=== PATIENT | male | born 2000 | race Caucasian/White ===

== ENCOUNTER 2022-12-06 08:55 | Emergency (ER) | payer MEDICAID, SELFPAY ==
--- NOTE | ~2022-12-06 | XR_ITS ---
EXAMINATION: XR ANKLE, RIGHT CLINICAL INFORMATION: Injury. COMPARISON: None available. TECHNIQUE: AP, lateral, and mortise views of the right ankle. FINDINGS: There is moderate lateral malleolar soft tissue swelling. No visible acute fracture, dislocation or subluxation seen. The ankle mortise and subtalar joints are normal. XR/XR ankle RT min 3V IMPRESSION: Moderate lateral malleolar soft tissue swelling. No visible acute fracture or dislocation seen.
[2022-12-06 09:28] VITALS: BP 153/69; PULSE 61; RESP 18; TEMP 36.7; O2SAT 98; BMI 34.8
--- NOTE | 2022-12-06 10:14 | ED_ITS ---
HPI - Extremity Injury (Lower) General Chief Complaint: Extremity Injury, Lower Stated Complaint: R ankle inj Time Seen by Provider: 12/06/22 09:08 History of Present Illness HPI Narrative: Patient complains of pain and swelling to the right ankle after twisting it playing basketball yesterday, no other injury no other complaint no numbness no weakness no tingling no neck pain no back pain Related Data Previous Rx's Medication Instructions Recorded ibuprofen 600 mg tablet 600 mg PO Q6H PRN pain #20 tabs 12/06/22 Allergies Allergy/AdvReac Type Severity Reaction Status Date / Time No Known Allergies Allergy Verified 12/06/22 09:10 [facility] Past Medical History Source: nursing notes reviewed Social History Social History Advance Directives: No Advance Directives Information Provided: Yes Physical Exam Vital Signs: Vital Signs: Last Vital Signs Temp 98.0 F 12/06/22 09:28 Pulse 61 12/06/22 09:28 Resp 18 12/06/22 09:28 BP 153/69 H 12/06/22 09:28 Pulse Ox 98 12/06/22 09:28 O2 Del Method Room Air 12/06/22 09:28 BMI result Body Mass Index 34.8 General appearance is no acute distress Head is normocephalic atraumatic Neck is supple Respiratory no distress The back full range of motion Extremities full range of motion x4 The right ankle had tenderness ecchymosis and swelling around the lateral malleolus, there was no other tenderness in the foot, no tenderness in the knee which had full range of motion, ankle had full range of motion, skin was intact Neuro no motor or sensory deficits Course Course Course Narrative: Right ankle x-ray was negative for fracture Patient was sprained ankle is given Aircast and crutches and discharged Discharge Plan Discharge Clinical Impression: Right ankle sprain Patient Disposition: Home, Self-Care Additional Instructions: X-ray of right ankle was negative Sprained ankle should improve significantly within a week, if still using crutches and significant discomfort follow with orthopedist or primary doctor for further evaluation Return any time any worse condition or any concerns You can use Motrin as needed, apply ice, elevate leg Prescriptions: New ibuprofen 600 mg tablet 600 mg PO Q6H PRN (Reason: pain) Qty: 20 0RF Referrals: Severo Velasco MD [Physician] - (Right ankle injury)
== END 2022-12-06 10:28 | disposition home or self-care (01) ==
PROVIDERS: Emergency Provider Emergency Medicine
DX: S93.401A Sprain of unspecified ligament of right ankle, initial encounter (principal); X50.1XXA Overexertion from prolonged static or awkward postures, initial encounter; Y93.9 Activity, unspecified; Y92.310 Basketball court as the place of occurrence of the external cause; Y99.9 Unspecified external cause status
CPT/HCPCS: 73610; 99282; 99283

== ENCOUNTER 2023-04-15 20:59 | Emergency (ER) | payer MEDICAID, SELFPAY ==
--- NOTE | ~2023-04-15 | XR_ITS ---
EXAMINATION: XR ANKLE, LEFT CLINICAL INFORMATION: Injury. COMPARISON: None available. TECHNIQUE: AP, lateral, and mortise views of the left ankle. FINDINGS: Marked soft tissue swelling is present overlying the distal part of the fibula extending to the ankle, consistent with soft tissue injury. Soft tissue swelling is also noted along the posterior and anterior aspect of the left ankle. The bony alignments are intact. The cortices are intact. Articular margins, joint space appear unremarkable. XR/XR ankle LT min 3V IMPRESSION: Marked soft tissue swelling overlying the distal part of the fibula and around the left ankle, most consistent with soft tissue injury. No radiographic evidence of underlying articular or acute osseous abnormalities.
[2023-04-15 21:16] VITALS: BP 133/66; PULSE 71; RESP 18; TEMP 36.9; O2SAT 96; BMI 31.2
--- NOTE | 2023-04-15 22:33 | ED.LOWEXIN ---
HPI - Extremity Injury (Lower) General Chief Complaint: Extremity Injury, Lower Stated Complaint: left david inj Time Seen by Provider: 04/15/23 22:32 Source: patient Mode of arrival: ambulatory Limitations: no limitations History of Present Illness HPI Narrative: Patient was playing basketball jumped in a wrong way landed on his left ankle sprain his left ankle with left ankle swelling and pain on ambulation no other injury Related Data Previous Rx's Medication Instructions Recorded ibuprofen 600 mg tablet 600 mg PO Q6H PRN pain #20 tabs 12/06/22 ibuprofen 600 mg tablet 600 mg PO Q6H PRN fever or pain 04/15/23 #30 tabs Allergies Allergy/AdvReac Type Severity Reaction Status Date / Time No Known Allergies Allergy Verified 12/06/22 09:10 Review of Systems Review of Systems: Yes all other systems are reviewed and are negative [facility] Social History Social History Advance Directives: No Advance Directives Information Provided: No Physical Exam Vital Signs: Vital Signs: Last Vital Signs Temp 98.4 F 04/15/23 21:16 Pulse 71 04/15/23 21:16 Resp 18 04/15/23 21:16 BP 133/66 04/15/23 21:16 Pulse Ox 96 04/15/23 21:16 O2 Del Method Room Air 04/15/23 21:16 BMI result Body Mass Index 31.2 Extrem: Ankle/foot/toe images: 1. Soft tissue swelling left ankle good range of movement neurovascular intact no deformity Medical Decision Making Medical Decision Making MDM Narrative: Patient with left ankle sprain x-ray negative for fracture given air cast and crutches Discharge Plan Discharge Clinical Impression: Ankle sprain and strain Patient Disposition: Home, Self-Care Instructions: Ankle Sprain (ED) Additional Instructions: wear ankle Aircast for support Ibuprofen for pain Avoid sports for next 6 weeks till heels complete Prescriptions: New ibuprofen 600 mg tablet 600 mg PO Q6H PRN (Reason: fever or pain) Qty: 30 0RF No Action ibuprofen 600 mg tablet 600 mg PO Q6H PRN (Reason: pain) Qty: 20 0RF Stand Alone Forms: Work/School Release
== END 2023-04-15 23:08 | disposition home or self-care (01) ==
PROVIDERS: Emergency Provider Internal Medicine
DX: S93.402A Sprain of unspecified ligament of left ankle, initial encounter (principal); S96.912A Strain of unspecified muscle and tendon at ankle and foot level, left foot, initial encounter; X50.1XXA Overexertion from prolonged static or awkward postures, initial encounter; Y93.67 Activity, basketball; Y92.310 Basketball court as the place of occurrence of the external cause; Y99.9 Unspecified external cause status
CPT/HCPCS: 73610; 99283

== ENCOUNTER 2023-08-05 18:26 | Emergency (ER) | payer MEDICAID, SELFPAY ==
--- NOTE | ~2023-08-05 | XR_ITS ---
EXAMINATION: XR HAND, LEFT CLINICAL INFORMATION: Fall. Injury. Swelling. COMPARISON: None available. TECHNIQUE: PA, lateral, and oblique views of the left hand. FINDINGS: Moderately displaced oblique fracture through the shaft of the third metacarpal. Fracture extends from the proximal shaft of the metadiaphysis to the distal shaft. No dislocation. XR/XR hand LT 2V IMPRESSION: Moderately displaced oblique fracture through the shaft of the third metacarpal.
[2023-08-05 18:58] VITALS: BP 161/73; PULSE 69; RESP 14; TEMP 36.8; O2SAT 97; BMI 32.9
[2023-08-05] MEDS: Ketorolac Tromethamine 15 MG/ML VIAL 30 MG IM (21:55)
--- NOTE | 2023-08-05 22:06 | ED.EXTPRO ---
HPI - Extremity Problem General Chief complaint: Extremity Injury, Upper Stated complaint: possible broken finger Time Seen by Provider: 08/05/23 20:51 Source: patient Mode of arrival: ambulatory Limitations: no limitations History of Present Illness HPI Narrative: This is a 23-year-old male presenting to the emergency department with left hand pain for the past few hours, patient reports he was playing basketball, fell, hit his left hand on the wood court, since then has been having pain and swelling. However now he says pains under control, able to move all fingers, no numbness or tingling. No head strike. No injuries to neck, chest, abdomen, pelvis or head. Not on blood thinners Related Data Previous Rx's Medication Instructions Recorded ibuprofen 600 mg tablet 600 mg PO Q6H PRN pain #20 tabs 12/06/22 ibuprofen 600 mg tablet 600 mg PO Q6H PRN fever or pain 04/15/23 #30 tabs ketorolac 10 mg tablet 10 mg PO TID PRN pain 5 days #15 08/05/23 tabs Allergies Allergy/AdvReac Type Severity Reaction Status Date / Time No Known Allergies Allergy Verified 12/06/22 09:10 Review of Systems Review of Systems: Constitutional : No Weight loss, No Fever, No Chills, No Fatigue, No Malaise ENT/Mouth : No sore throat, No Rhinorrhea Eyes: No Eye Pain, No Swelling, No Redness Cardiovascular : No Chest Pain, No SOB, No Dyspnea on Exertion, No Orthopnea, No Edema, No Palpitations Respiratory : No Cough, No Sputum, No Wheezing Gastrointestinal : No Nausea, No Vomiting, No Diarrhea, No Constipation, No abdominal Pain, No Hematochezia, No Melena Genitourinary : No Dysuria, No Urinary Frequency, No Hematuria, Musculoskeletal : + joint pain, No Myalgias, + Joint Swelling Skin : No Skin Lesions, No rash Neuro : No Weakness, No Numbness, No Dizziness, No Headache Psych : No Anxiety/Panic, No Depression All other systems reviewed and are negative Yes all other systems are reviewed and are negative [facility] Past Medical History Attestation statement: The following information was validated with the patient. Source: old records reviewed and nursing notes reviewed Social History Social History Advance Directives: No Advance Directives Information Provided: No Physical Exam Vital Signs: Vital Signs: Last Vital Signs Temp 98.2 F 08/05/23 18:58 Pulse 69 08/05/23 18:58 Resp 14 08/05/23 18:58 BP 161/73 H 08/05/23 18:58 Pulse Ox 97 08/05/23 18:58 O2 Del Method Room Air 08/05/23 18:58 BMI result Body Mass Index 32.9 vss Appearance: Alert.? Oriented X3.? No acute distress.? Head: Normocephalic, atraumatic, no step-offs or deformities Eyes: Pupils equal, round and reactive to light.? ENT: Pharynx normal.? Neck: Normal inspection.? Neck supple.? CVS: Normal heart rate and rhythm.? Pulses normal.? Respiratory: No respiratory distress.? Breath sounds normal.? Abdomen: Soft and nontender.? Skin: Skin warm and dry.? Normal skin color.? Normal skin turgor.? Extremities: No lower extremity edema.? No calf ttp. 5/5 strength to bilateral upper and lower extremities + swelling noted to the dorsal aspect of left hand with hematoma and mild discomfort with palpation with evident deformity patient able to move all fingers bilaterally, normal sensation distally capillary refill less than 2 seconds 2+ radial pulses equal bilateral. Normal right hand. Back: No midline tenderness, no C-spine tenderness, full range of motion, no CVA tenderness bilaterally Neuro: Oriented X 3.? No motor deficit.? No sensory deficit. CN 2-12 intact . Ambulating with steady gait normal coordination. Normal [id number]. Course Reevaluation(s) Reevaluation #1: X-ray showing moderately displaced oblique fracture through the shaft of the 3rd metacarpal. I did place an ulnar gutter with my attending Dr. Degroot. Neurovascular status intact after placing splint. I did let ortho know about this case patient to follow-up in the office. Will send him with Toradol. Educated patient on diagnosis and treatment plan, answered all question, patient verbalizes understanding. At this time patient will be discharged home, advised to return with new or worsening symptoms. Educated on worrisome signs and symptoms and when to return. At this time I feel comfortable discharge home. Time: 22:10 Medications Administered Discontinued Medications Generic Name Dose Route Start Last Admin Trade Name Freq PRN Reason Stop Dose Admin Ketorolac Tromethamine 30 mg 08/05/23 21:18 08/05/23 21:55 Ketorolac Tromethamine 15 Mg/Ml Vial IM 08/05/23 21:19 30 mg ONCE ONE Administration Medical Decision Making Medical Decision Making [facility] Narrative: 23-year-old male presents with left hand pain status post fall while playing basketball PE w/ No lower extremity edema.? No calf ttp. 5/5 strength to bilateral upper and lower extremities + swelling noted to the dorsal aspect of left hand with hematoma and mild discomfort with palpation with evident deformity patient able to move all fingers bilaterally, normal sensation distally capillary refill less than 2 seconds 2+ radial pulses equal bilateral. Normal right hand. Concern for pressure fracture, dislocation. No signs of neurovascular compromise, threat to [place]. No signs of traumatic injury to head, neck, chest, abdomen or pelvis Plan imaging Differential Diagnosis Differential Diagnoses: The differential diagnosis associated with the presentation includes Concern for pressure fracture, dislocation. No signs of neurovascular compromise, threat to [place]. No signs of traumatic injury to head, neck, chest, abdomen or pelvis Admission/Observation Consideration of admission/observation: Escalation of care including admission/observation considered Unlikely Consult Healthcare Provider Management of the patient was discussed with: Hand Profiler (Ortho) Lab Data [facility] Lab Attestation statement: I reviewed the patient's lab results. Independent Interpretation I performed an independent interpretation of an: Plain X-Ray (XR/XR hand LT 2V IMPRESSION: Moderately displaced oblique fracture through the shaft of the third metacarpal. ) Radiology Impression Discussion of test interpretation with radiology: I have reviewed the radiologist's reading. Prescription Management I considered prescription management with: Pain Medication Critical Care Time Critical Care Time Critical Care Time: Yes Total Critical Care Time: 35 Attestation: I attest to this time spent taking care of the patient, obtaining history, physical, reviewing labs, imaging, speaking to my attending, speaking to specialist. Discharge Plan Discharge Clinical Impression: Fracture of hand Patient Disposition: Home, Self-Care Instructions: Hand Fracture (ED) Additional Instructions: Take your medications as prescribed. If you were prescribed antibiotics today, it is important that you take your medication to their entirety, do not skip any doses, do not finish them early. Follow-up with your primary care provider this week. Return to the emergency department with new or worsening symptoms. Such as fevers, chills, chest pain, shortness of breath, nausea, vomiting, dizziness, headache, vision changes, lethargy In case of emergency call 911 Toradol has been sent to your pharmacy, you tolerated this well in the department. Please take this as prescribed do not take this with ibuprofen, or other NSAIDs, do not mix this with alcohol. Side effects of this medication including increased risk for bleeding and possible kidney injury. Follow-up with the orthopedic doctor Return if you experience numbness, tingling, skin discoloration, inability to feel your left hand, inability to move fingers. Keep your splint clean and dry. FINDINGS: Moderately displaced oblique fracture through the shaft of the third metacarpal. Fracture extends from the proximal shaft of the metadiaphysis to the distal shaft. No dislocation. XR/XR hand LT 2V IMPRESSION: Moderately displaced oblique fracture through the shaft of the third metacarpal. Prescriptions: New ketorolac 10 mg tablet 10 mg PO TID PRN (Reason: pain) 5 Days Qty: 15 0RF No Action ibuprofen 600 mg tablet 600 mg PO Q6H PRN (Reason: pain) Qty: 20 0RF ibuprofen 600 mg tablet 600 mg PO Q6H PRN (Reason: fever or pain) Qty: 30 0RF Referrals: [facility] [place] Orthopedic Surgeons [Provider Group] - 3 days Physician,Unknown J [Primary Care Provider] - 2 days Stand Alone Forms: Work/School Release
== END 2023-08-05 22:11 | disposition home or self-care (01) ==
PROVIDERS: Emergency Provider Internal Medicine
DX: S62.323A Displaced fracture of shaft of third metacarpal bone, left hand, initial encounter for closed fracture (principal); W18.39XA Other fall on same level, initial encounter; Y93.67 Activity, basketball; Y92.9 Unspecified place or not applicable; Y99.9 Unspecified external cause status; M79.642 Pain in left hand
CPT/HCPCS: 73120; 96372; 99283; 99284; J1885

== ENCOUNTER 2023-08-07 13:29 | Outpatient (AMB) | payer MEDICAID, SELFPAY ==
[2023-08-07 13:37] VITALS: BMI 32.8
--- NOTE | 2023-08-07 13:37 | A.OFFVIS_ITS ---
Intake Vital Signs 08/07/23 13:37 Height 6 ft Weight 242 lb BMI 32.8 Intake Visit Reasons: FC- ED f/u left hand fx Intake Note: Bennett trevino 23 year old right hand dominant male presents today for an ER follow up of left hand fx, DOI 08/05/23. Patient reports he was playing basketball, when he fell injuring his left hand on the wood court. He presented to [facility] ED same day where xrays were taken and placed in a splint. Currently he denies pain however he complains of numbness and tingling in his hand. Allergies No Known Allergies Allergy (Verified 08/07/23 13:46) Medication List - Last Reconciled 08/07/23 by Cristofer Rojas PA-C No Known Home Meds HPI FC- ED f/u left hand fx HPI Details 23-year-old right hand dominant male who presents to the office today for an ER follow-up of left-hand injury s/p playing basketball when he fell and injured his left hand on the wooden court, 08/05/23. He was seen at ED the same day where x-rays were performed and he was placed in a splint. He currently states he has no pain but he does c/o numbness and tingling in his hand. [facility] Social History (Updated 08/07/23 @ 13:41 by JUAN JOSE Crane) Patient Tobacco Use Status: Never used Tobacco Current occupational status: student Current occupation: trade school, right hand dominant Review of Systems Const All systems reviewed & are unremarkable except as noted in HPI and below Physical Exam Vital Signs: BMI result Body Mass Index 32.8 Const General: cooperative and no acute distress Orientation/consciousness: patient oriented x3 HEENT Head: Yes normal to inspection, Yes normocephalic and Yes atraumatic Eyes General: appearance normal, both eyes and all related structures Neck Neck: Yes normal visual inspection and Yes no lymphadenopathy Resp Effort & Inspection: normal respiratory effort and able to speak in complete sentences Cardio Rate: regular rate Peripheral pulses: Peripheral pulses 2+ throughout GI Inspection: Yes normal to inspection Palpation (GI): Soft to palpation Skin General skin exam: no rashes or lesions noted Neuro General: patient oriented x3 Extrem Other: Left hand: Normal to inspection. He does have significant swelling along the dorsum of the hand with tenderness to palpation along the 3rd metacarpal shaft. He can make a full fist and fully extend all digits. NVI. Psych Appearance: grossly normal Mental Status: mental status grossly normal Office Procedures Casting/Splints 29592-Vuzkydi Splint Application Procedure code (CPT) selection complete Fracture Care Fracture Billing Code: Fracture Billing Code Results Reviewed Results Reviewed: XR hand LT 2V 08/05/23 IMPRESSION: Moderately displaced oblique fracture through the shaft of the third metacarpal. Assessment & Plan Assessment & Plan (1) Fracture of hand: Code(s): S62.90XA - Unspecified fracture of unspecified wrist and hand, initial encounter for closed fracture Qualifiers: Encounter type: initial encounter Fracture type: closed Laterality: left Qualified Code(s): S62.92XA - Unspecified fracture of left wrist and hand, initial encounter for closed fracture Plan I discussed the case with Dr. Velasco. I discussed the extent of the injury to the patient and options available. Given the extent of the fracture pattern and high risk of further displacement, it is recommended that we surgically fix this to help with stability and restoring anatomy. I explained to the patient the procedure in detail along with the risks, benefits and alternatives. Risks including but not limited to infection, wound breakdown, stiffness, ongoing pain, nonunion or malunion, and possible complications with hardware. He does understand all this and would like to proceed with closed versus open reduction internal fixation of the left hand with Dr. Velasco. He will be booked accordingly. post op plan : 3wks immob followed by pinn removal based on bony healing ROM Patient Instructions: Scribed for Cristofer Rojas PA-C, by Dru Baez medical staff assistant, on 08/07/2023 at 2:30 PM YESY. Cristofer Reyna PA-C, have personally reviewed and agree with the information entered by the scribe. Coding Level of Care Code New Pt Level 4 (60945) Diagnoses Closed fracture of left hand, initial encounter S62.92XA Encounter type: initial encounter Fracture type: closed Laterality: left CPT Codes Splint - CPT: 81740-Cdgassb Splint Application ([id number]) Fracture Care - Fracture Billing Code: Fracture Billing Code ([id number])
== END 2023-08-07 14:43 | disposition home or self-care (01) ==
LOC: HO.HOS 13:29
PROVIDERS: Visit Provider Physician Assistant
DX: S62.323B Displaced fracture of shaft of third metacarpal bone, left hand, initial encounter for open fracture (principal); S62.92XA Unspecified fracture of left hand, initial encounter for closed fracture; W19.XXXA Unspecified fall, initial encounter; Y93.67 Activity, basketball
CPT/HCPCS: 26600; 99204

== ENCOUNTER → 2023-08-07 13:29 | Outpatient (BNVA) | payer MEDICAID, SELFPAY | PROVIDERS: Visit Provider Physician Assistant | DX: S62.92XA Unspecified fracture of left hand, initial encounter for closed fracture (principal) | CPT/HCPCS: 26600; 99212 ==

== ENCOUNTER 2023-08-09 11:15 | Day surgery (SDC) | payer MEDICAID, SELFPAY ==
--- NOTE | 2023-08-08 12:02 | P.CONAN_ITS ---
Documented by User: Stephanie Izquierdo NP 08/08/23 12:02 HPI - Anesthesia Eval Consult details Narrative: 23yo M for Left Middle Finger Fx ORIF vs CRPP [facility] Social History Social History (Updated 08/07/23 @ 13:41 by JUAN JOSE Crane) Patient Tobacco Use Status: Never used Tobacco Advance Directives: No Advance Directives Information Provided: Yes Current occupational status: student Current occupation: trade school, right hand dominant Meds Allergies Allergy/AdvReac Type Severity Reaction Status Date / Time No Known Allergies Allergy Verified 08/07/23 13:46 Assessment and Plan Assessment Anesthesia Assessment: Chart Reviewed Documented by User: Charles Vyas MD 08/09/23 11:43 [facility] Family History Family history of problems with anesthesia: No Surgical History History of Problems with Anesthesia: No (h) Social History Social History (Updated 08/07/23 @ 13:41 by JUAN JOSE Crane) Patient Tobacco Use Status: Never used Tobacco Advance Directives: No Advance Directives Information Provided: Yes Current occupational status: student Current occupation: [employer], right hand dominant Meds Allergies Allergy/AdvReac Type Severity Reaction Status Date / Time No Known Allergies Allergy Verified 08/07/23 13:46 Exam Airway Mallampati Class: II TM Dist: >3cm Neck ROM: Limited Heart: rrr Lungs: cta Assessment and Plan Assessment Anesthesia Assessment: Anesthesia Plan Discussed Final Anesthetic Review Family History of Problems with Anesthesia: No History of Problems with Anesthesia: No (h) ASA Class: II Final Preanesthetic Review: No Changes in Pt Med Stat, Meds/Allgs Chart Reviewed, Consent Obtained/Reviewed and Anes Risks/Benef Reviewed Patient Risk: Low Procedure Risk: Intermediate Anesthetic Plan Anesthetic Plan: GA, Regional Block and Agree w/ Assess. and Plan Disposition: Standard PACU
--- NOTE | ~2023-08-09 | FL_ITS ---
EXAMINATION: XR FLUOROSCOPY WITH IMAGES CLINICAL INFORMATION: Fracture left middle finger. COMPARISON: Left hand x-ray 08/05/2023 TECHNIQUE: Fluoroscopy Supervised By: Dr. Severo Velasco. Fluoroscopy Time: 73.76 seconds. Cumulative Dose: 2.4016 mGy. DAP: 0.1451 Gycm2. Images: 2. FINDINGS: Images demonstrate 4 screws transfixing the fracture of the third metacarpal shaft. There is improved alignment. FL/FL guidance in OR IMPRESSION: ORIF of left third metacarpal fracture.
[2023-08-09 11:50] VITALS: BMI 31.2
[2023-08-09 11:51] VITALS: BP 144/63; PULSE 64; RESP 18; TEMP 37.2; O2SAT 96
[2023-08-09] MEDS: Lactated Ringers 1,000 ML 100 ML IVCONT (11:57)
--- NOTE | 2023-08-09 12:05 | MHC.SHP ---
Pre-Procedural Eval Section A Date of Service: 08/09/23 The patient is an INPATIENT: No Changes since office visit: No Cold of Flu in the past 2 weeks, No New Medical Problems, No Changes in Medication and No Patient answered all questions The History & Physical has been completed within 30 days and I have reviewed it.: Yes Section B Chief Complaint: Displaced fracture of proximal phalanx of left mid Allergies: Allergies Allergy/AdvReac Type Severity Reaction Status Date / Time No Known Allergies Allergy Verified 08/07/23 13:46 Plan I have reviewed the history and physical and performed a pertinent physical examination on my patient. No changes have occurred unless specified. Time Spent With Patient Time: Total time managing care of this patient today ____ minutes.
--- NOTE | 2023-08-09 13:44 | PM.OP ---
Brief Operative Note Date of Service: 08/09/23 Pre-op diagnosis: Left long finger metacarpal fracture Post-op diagnosis: same Procedure: ORIF L LF metacarpal Implants: Adry 2.3 mm bone screws x 4 Surgeon: Severo Velasco MD Anesthesia: GETA Was an Mechanical Unit Repairer used for this Procedure?: Yes Mechanical Unit Repairer: Jennifer Coronel Estimated blood loss (mL): 5 Tourniquet time (min): 40 IV fluids (mL): 800 Pathology: none sent Condition: stable Disposition: PACU
[2023-08-09 13:50] VITALS: BP 136/65; PULSE 76; RESP 16; TEMP 36.2; O2SAT 97
[2023-08-09 13:55] VITALS: BP 138/58; PULSE 90; RESP 16; O2SAT 99
[2023-08-09 14:00] VITALS: BP 135/55; PULSE 76; RESP 16; O2SAT 96
[2023-08-09 14:05] VITALS: BP 133/52; PULSE 77; RESP 16; O2SAT 96
[2023-08-09 14:20] VITALS: BP 132/58; PULSE 73; RESP 19; TEMP 36.7; O2SAT 97
--- NOTE | 2023-08-12 08:22 | W.PM.OPN ---
Operative Note Operative Note Date of Service: 08/09/23 Narrative: Date of Service: 08/09/23 Pre-op diagnosis: Left long finger metacarpal fracture Post-op diagnosis: same Procedure: ORIF L LF metacarpal Implants: Adry 2.3 mm bone screws x 4 Surgeon: Severo Velasco MD Anesthesia: GETA Was an Licensed Nurse Practitioner used for this Procedure?: Yes Licensed Nurse Practitioner: Jennifer Coronel Estimated blood loss (mL): 5 Tourniquet time (min): 40 IV fluids (mL): 800 Pathology: none sent Condition: stable Disposition: PACU Patient was brought to the operating room and placed supine on the surgical table. He was prepped and draped in standard sterile fashion and a time out was called to indentify proper site, proper procedure and IV antibiotics per weight were administered. I began by making a longitudinal incision over the dorsum of the left LF metacarpal. Full thickness flaps were developed and the long oblique metacarpal fracture was identified. I used a towel clip to reduce the fracture once i debrided clot and fibrous tissue. I then placed 4 2.3 mm screws from dorsal to volar across the fracture using standard AO lag screw technique. Biplanar flouro was used to confirm screw length and fracture reduction. I was satisfied with the reduction. I then irrigated copiously and closed with running absorbable suture and skin glue. Sterile dressings were applied. Patient was placed into a well-padded volar splint. He was extubated and brought to the recovery room in stable condition. There were no known complications.
== END 2023-08-09 15:59 | disposition home or self-care (01) ==
LOC: HO.SSS 11:16
PROVIDERS: Visit Provider Orthopaedic Surgery
PROC: (CPT 26615; principal; 2023-08-09 13:50)
DX: S62.323A Displaced fracture of shaft of third metacarpal bone, left hand, initial encounter for closed fracture (principal); R20.0 Anesthesia of skin; R20.1 Hypoesthesia of skin; W01.0XXA Fall on same level from slipping, tripping and stumbling without subsequent striking against object, initial encounter; Y93.67 Activity, basketball; Y92.89 Other specified places as the place of occurrence of the external cause; Y99.9 Unspecified external cause status
CPT/HCPCS: 26615; C1713; J0690; J1100; J2405; J2704; J2795

== ENCOUNTER → 2023-08-09 11:15 | Outpatient (BNV) | payer MEDICAID, SELFPAY | PROVIDERS: Visit Provider Orthopaedic Surgery | DX: S62.323A Displaced fracture of shaft of third metacarpal bone, left hand, initial encounter for closed fracture (principal) | CPT/HCPCS: 26615 ==

== ENCOUNTER 2023-08-31 10:44 | Outpatient (REF) | payer MEDICAID, SELFPAY | END 2023-08-31 10:45 | disposition home or self-care (01) | LOC: HO.HOSX 10:44 | PROVIDERS: Visit Provider Physician Assistant | DX: Z13.89 Encounter for screening for other disorder (principal) ==

== ENCOUNTER 2023-09-05 08:20 | Outpatient (AMB) | payer MEDICAID, SELFPAY ==
--- NOTE | 2023-09-05 08:31 | MHC.OFFVIS ---
Intake Intake Visit Reasons: PO-Lt MF CRPP vs ORIF 08/09/23 NE Intake Note: Bennett is a 23 year old right hand dominant male who presents today for a post op appointment s/p left MF CRPP vs ORIF 08/16/23 NE. Patient reports he is doing well no pain or discomfort, however he does feel his hand a bit heavy. Allergies No Known Allergies Allergy (Verified 08/07/23 13:46) HPI PO-Lt MF CRPP vs ORIF 08/09/23 NE HPI Details 23-year-old right hand dominant male who presents in the office today 3 weeks and 6 days status post left little finger metacarpal ORIF, which was performed on 08/09/[address] Velasco. The patient reports he is doing well no pain or discomfort. However, he states he feels his hand is a bit heavy. [facility] Social History Patient Tobacco Use Status: Never used Tobacco Current occupational status: student Current occupation: trade school, right hand dominant Review of Systems Const All systems reviewed & are unremarkable except as noted in HPI and below Physical Exam Const General: cooperative, healthy appearing and no acute distress Resp Effort & Inspection: normal respiratory effort and able to speak in complete sentences Cardio Rate: regular rate Peripheral pulses: Peripheral pulses 2+ throughout GI Palpation (GI): Soft to palpation Skin Lesions: no lesions Rashes: no rashes Extrem Other: Left hand: Dorsal side incision site over the 3rd metacarpal is clean, dry, and intact. Steri-stripes intact. No surrounding erythema or drainage. No signs of infection. Lacking about 3 cm from making a closed fist. Sensation intact. Capillary refill intact. Office Procedures Casting/Splints 13190-Bwzi/Wrist Cast Application Procedure code (CPT) selection complete Assessment & Plan Assessment & Plan (1) Fracture of hand: Comment: Left little finger metacarpal ORIF 08/08/2023 Dr. Severo Velasco Code(s): S62.90XA - Unspecified fracture of unspecified wrist and hand, initial encounter for closed fracture Qualifiers: Encounter type: initial encounter Fracture type: closed Laterality: left Qualified Code(s): S62.92XA - Unspecified fracture of left wrist and hand, initial encounter for closed fracture Plan Mr. Whitney is a 23-year-old right hand dominant male who presents in the office today 3 weeks and 6 days status post left little finger metacarpal ORIF, which was performed on 08/09/[address] Velasco. The patient reports he is doing well no pain or discomfort. However, he states he feels his hand is a bit heavy. Dr. Diallo was available to speak with me while in the office today and a collaborative treatment plan was made. The patient will be placed in a finger spica custom made cast with fingers including the middle, ring and little fingers. He might be able to come out of the cast in 2 weeks but will need to continue isamar taping for 4 additional weeks. I would like for him to work on gentle ROM of the index and thumb fingers. 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 Follow up will be in 2 weeks with repeat x-rays out of the cast with anticipated transition to isamar taping, or sooner if needed. X-rays of the left hand which were obtained while in the office today and were reviewed by me, Jennifer Coronel PA-C, revealed orthopedic hardware intact with routine healing. Orders: Orders XR hand LT min 3V Today M79.643 - Pain in unspecified hand Patient Instructions: Scribed for Jennifer Coronel PA-C by Cierra Vuong nuclear medical tech, on 09/05/2023 at 8:21 am, EST. Coding Level of Care Code Global (03277) Diagnoses Closed fracture of left hand, initial encounter S62.92XA Encounter type: initial encounter Fracture type: closed Laterality: left CPT Codes Casting - CPT: 84926-Xxdp/Wrist Cast Application ([id number])
== END 2023-09-05 09:59 | disposition home or self-care (01) ==
PROVIDERS: Visit Provider Physician Assistant
DX: S62.92XA Unspecified fracture of left hand, initial encounter for closed fracture (principal)
CPT/HCPCS: 29085; 99024

== ENCOUNTER 2023-09-05 11:13 | Outpatient (REF) | payer MEDICAID, SELFPAY ==
--- NOTE | ~2023-09-05 | XR_ITS ---
EXAMINATION: XR HAND, LEFT CLINICAL INFORMATION: Pain. COMPARISON: Prior examinations, most recently 08/09/2023. TECHNIQUE: PA, lateral, and oblique views of the left hand. FINDINGS: Bony alignment and mineralization are normal. There is a neutral ulnar variance. There is stable very mild displacement of an oblique fracture of the left third metacarpal shaft, with intact orthopedic fixator screws. No hardware failure or loosening is seen. There is no significant new callus formation. No dislocation is seen. There is no abnormal bony erosive change. The proximal and distal carpal rows are intact. No focal soft tissue swelling, gas or foreign body is seen. XR/XR hand LT min 3V IMPRESSION: There is stable very mild displacement status-post ORIF of an oblique fracture of the left third metacarpal shaft. No hardware failure or loosening is seen. There is no significant new callus formation.
== END 2023-09-05 11:14 | disposition home or self-care (01) ==
LOC: HO.HOSX 11:13
PROVIDERS: Visit Provider Physician Assistant
DX: S62.92XD Unspecified fracture of left hand, subsequent encounter for fracture with routine healing (principal); X58.XXXD Exposure to other specified factors, subsequent encounter
CPT/HCPCS: 29085; 73130; 99212

== ENCOUNTER 2023-09-21 09:04 | Outpatient (AMB) | payer MEDICAID, SELFPAY ==
--- NOTE | 2023-09-21 09:17 | A.OFFVIS_ITS ---
Intake Vital Signs 09/21/23 09:25 Height 6 ft Weight 240 lb BMI 32.5 Handedness Right Intake Visit Reasons: PO-Lt MF CRPP vs ORIF 08/09/23 NE Intake Note: Bennett is a 23 year old right hand dominant male who presents today for a post op appointment s/p left MF CRPP vs ORIF 08/16/23 NE. X-rays were updated and cast was removed. Patient reports no pain or discomfort. He states that his ROM feels a bit stiff and weak. Patient would like OT. Patient is having concerns of redness on the dorsal aspect of his left hand. Allergies No Known Allergies Allergy (Verified 09/21/23 09:18) HPI PO-Lt MF CRPP vs ORIF 08/09/23 NE HPI Details 23-year-old right hand dominant male who presents in the office today 6 weeks status post left fourth metacarpal ORIF, which was performed on 08/09/[address] Velasco. I last saw the patient in the office on 09/05/2023 when he was placed in a thumb spica cast for 2 weeks. The patient reports no pain or disc omfort while in the office today. He confirms some stiffness and weakness, therefore he would like to attend occupational therapy. [facility] Social History Patient Tobacco Use Status: Never used Tobacco Current occupational status: student Current occupation: trade school, right hand dominant Review of Systems Const All systems reviewed & are unremarkable except as noted in HPI and below Physical Exam Vital Signs: BMI result Body Mass Index 32.5 Const General: cooperative, healthy appearing and no acute distress Resp Effort & Inspection: normal respiratory effort and able to speak in complete sentences Cardio Rate: regular rate Peripheral pulses: Peripheral pulses 2+ throughout GI Palpation (GI): Soft to palpation Skin Lesions: no lesions Rashes: no rashes Extrem Other: Left hand: Incision site on the dorsal aspect of the hand over the fourth metacarpal is clean, dry, and intact. Steri-stripes are still intact. No s urrounding erythema or drainage. No signs of infection. Lacking 3 cm from making a closed fist. Sensation intact. Capillary refill is brisk. Assessment & Plan Assessment & Plan (1) Fracture of hand: Comment: Left little finger metacarpal ORIF 08/08/2023 Dr. Severo Velasco Code(s): S62.90XA - Unspecified fracture of unspecified wrist and hand, initial encounter for closed fracture Qualifiers: Encounter type: initial encounter Fracture type: closed Laterality: left Qualified Code(s): S62.92XA - Unspecified fracture of left wrist and hand, initial encounter for closed fracture Plan 23-year-old right hand dominant male who presents in the office today 6 weeks status post left fourth metacarpal ORIF, which was performed on 08/09/[address] Velasco. I last saw the patient in the office on 09/05/2023 when he was placed in a thumb spica cast for 2 weeks. The patient reports no pain or discomfort while in the office today. He confirms some stiffness and weakness, therefore he would like to attend occupational therapy. The patient was placed in a thermal molded volar wrist brace, off the shelf, with isamar taping of the middle and ring fingers. He is to treat the labels molder volar wrist brace like a cast and is only able to remove it for hand washing and hygiene. I have placed an order for occupational therapy. He would like to attend the facility through is school. He was given a note stating no heavy lifting greater than a coffee cup or cell phone. 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 Follow up will be in 4- 6 weeks, or sooner if needed. X-rays of the left hand which were obtained while in the office today and were reviewed by me, Jennifer Coronel PA-C, revealed orthopedic hardware intact with routine healing. Orders: Orders OT Evaluation and Treatment Today S62.90XA - Unspecified fracture of unspecified wrist and hand, initial encounter for closed fracture XR hand LT min 3V Today M79.643 - Pain in unspecified hand Patient Instructions: Scribed for Jennifer Coronel PA-C by Cierra Vuong medical sales specialist, on 09/18/2023 at 9:06 am, EST. Coding Level of Care Code Global (44207) Diagnoses Closed fracture of left hand, initial encounter S62.92XA Encounter type: initial encounter Fracture type: closed Laterality: left
[2023-09-21 09:25] VITALS: BMI 32.5
== END 2023-09-21 10:05 | disposition home or self-care (01) ==
PROVIDERS: Visit Provider Physician Assistant
DX: S62.92XA Unspecified fracture of left hand, initial encounter for closed fracture (principal)
CPT/HCPCS: 99024

== ENCOUNTER 2023-09-21 12:38 | Outpatient (REF) | payer MEDICAID, SELFPAY ==
--- NOTE | ~2023-09-21 | XR_ITS ---
EXAMINATION: XR HAND, LEFT CLINICAL INFORMATION: Left hand pain COMPARISON: Left hand x-ray on 08/05/2023 TECHNIQUE: Four views of the left hand. FINDINGS: BONES: Oblique fracture mid and distal shaft of the left third metacarpal, internal fixation with cortical screws is again visualized, with minimal proximal dorsal displacement. Distal shaft volar radiolucent bone gap remains visible. JOINTS: Alignment of joints is normal. SOFT TISSUE: Soft tissue is normal. No radiopaque foreign body or abnormal air collection is seen. XR/XR hand LT min 3V IMPRESSION: Unchanged Status post internal fixation of oblique fracture mid and distal shaft of the left third metacarpal, with minimal proximal dorsal displacement of the distal fragment.
== END 2023-09-21 12:39 | disposition home or self-care (01) ==
LOC: HO.HOSX 12:38
PROVIDERS: Visit Provider Physician Assistant
DX: S62.92XD Unspecified fracture of left hand, subsequent encounter for fracture with routine healing (principal); M79.642 Pain in left hand; X58.XXXD Exposure to other specified factors, subsequent encounter
CPT/HCPCS: 73130; 99212

== ENCOUNTER 2023-10-26 10:44 | Outpatient (AMB) | payer MEDICAID, SELFPAY ==
--- NOTE | 2023-10-26 10:59 | MHC.OFFVIS ---
Intake Intake Visit Reasons: PO-Lt MF CRPP vs ORIF 08/09/23 NE-w/Xrays Intake Note: Bennett is a 23 year old right hand dominant male who presents today for a post op appointment s/p left MF CRPP vs ORIF 08/16/23 NE. X-rays were updated. Patient reports he is doing well, denies any pain or discomfort. He stated no concerns today and is looking to be cleared for basketball. Allergies No Known Allergies Allergy (Verified 10/26/23 11:03) HPI PO-Lt MF CRPP vs ORIF 08/09/23 NE-w/Xrays HPI Details 23-year-old male who presents in the office today 3 months status post left middle finger metacarpal ORIF, which was performed on 08/09/[address] Velasco. I last saw the patient in the office on 09/21/2023 where the patient was placed in a thermal molded volar wrist brace with isamar taping of the middle and ring fingers. He was referred to occupational therapy, which he stated he would like to attend the facility at his school. While in the office the patient reports he is doing well. He denies any pain or discomfort. He states he has no concerns today. He is also interested in being cleared for basketball. [facility] Social History Patient Tobacco Use Status: Never used Tobacco Current occupational status: student Current occupation: trade school, right hand dominant Review of Systems Const All systems reviewed & are unremarkable except as noted in HPI and below Physical Exam Const General: cooperative, healthy appearing and no acute distress Resp Effort & Inspection: normal respiratory effort and able to speak in complete sentences Cardio Rate: regular rate Peripheral pulses: Peripheral pulses 2+ throughout GI Palpation (GI): Soft to palpation Skin Lesions: no lesions Rashes: no rashes Extrem Other: Left hand: Incision site on the dorsal aspect of the hand over the third metacarpal is healed with no signs of infection. Able to make a closed fist. Able to perform full finger extension, flexion, abduction and adduction without deficit. Sensation intact. Capillary refill is brisk. Assessment & Plan Assessment & Plan (1) Fracture of hand: Comment: Left long finger metacarpal ORIF 08/09/2023 Dr. Severo Velasco Code(s): S62.90XA - Unspecified fracture of unspecified wrist and hand, initial encounter for closed fracture Qualifiers: Encounter type: initial encounter Fracture type: closed Laterality: left Qualified Code(s): S62.92XA - Unspecified fracture of left wrist and hand, initial encounter for closed fracture Plan Mr. Pratt is a 23-year-old male who presents in the office today 3 months status post left middle finger metacarpal ORIF, which was performed on 08/09/[address] Velasco. I last saw the patient in the office on 09/21/2023 where the patient was placed in a thermal molded volar wrist brace with isamar taping of the middle and ring fingers. He was referred to occupational therapy, which he stated he would like to attend the facility at his school. While in the office the patient reports he is doing well. He denies any pain or discomfort. He states he has no concerns today. He is also interested in being cleared for basketball. The patient may return to normal activities as tolerated. He has full ROM of the hand and wrist, therefore, formal occupational therapy has been declined at this time. Follow up will be PRN, or sooner if needed. X-rays of the left hand which were obtained while in the office today and were reviewed by me, Jennifer Coronel PA-C, revealed intact orthopedic hardware of the 3rd metacarpal. Orders: Orders XR hand LT min 3V Today M79.643 - Pain in unspecified hand Patient Instructions: Scribed by Cierra Vuong medical numerical control operator, for Jennifer Coronel PA-C on 10/26/2023 at 10:56 am, EST. Coding Level of Care Code Global (91776) Diagnoses Closed fracture of left hand, initial encounter S62.92XA Encounter type: initial encounter Fracture type: closed Laterality: left
== END 2023-10-26 11:37 | disposition home or self-care (01) ==
PROVIDERS: Visit Provider Physician Assistant
DX: S62.92XA Unspecified fracture of left hand, initial encounter for closed fracture (principal)
CPT/HCPCS: 99024

== ENCOUNTER 2023-10-26 16:47 | Outpatient (REF) | payer MEDICAID, SELFPAY ==
--- NOTE | ~2023-10-26 | XR_ITS ---
EXAMINATION: XR HAND, LEFT CLINICAL INFORMATION: Hand pain. COMPARISON: Plain films of the left hand dating between September 21, 2023 and August 05, 2023. TECHNIQUE: PA, lateral, and oblique views of the left hand. FINDINGS: Examination again demonstrates fixation screws across and oblique fracture involving the diaphysis of the left third metacarpal bone. There is a question of lucency around the screws, raising suspicion for loosening. No hardware fracture is identified. Bony callus formation is not clearly appreciated. The study is otherwise essentially unremarkable. XR/XR hand LT min 3V IMPRESSION: Findings as above.
== END 2023-10-26 16:48 | disposition home or self-care (01) ==
LOC: HO.HOSX 16:47
PROVIDERS: Visit Provider Physician Assistant
DX: S62.92XD Unspecified fracture of left hand, subsequent encounter for fracture with routine healing (principal); M79.642 Pain in left hand; X58.XXXD Exposure to other specified factors, subsequent encounter
CPT/HCPCS: 73130; 99212